=== PATIENT | female | born 1945 | race Caucasian/White ===

== ENCOUNTER → 2018-01-13 16:30 | Outpatient (CLI) | payer MEDICARE, SELFPAY ==
[2018-01-13 17:57] LABS: Prothrombin Time (Protime)PT. 13.6 SECONDS (11.7-14.9)
[2018-01-13 17:58] LABS: Partial Thromboplast Time 29.7 Seconds (24.1-36.2)
[2018-01-13 18:04] LABS: Hematocrit 44.7 % (37-47); Hemoglobin 14.8 g/dl (12.0-15.0); Mean Corp Hgb Conc 33.1 g/gl (32-36); Mean Corpuscular Hgb 30.6 pg (27.0-32.0); Mean Corpuscular Volume 92.4 fL (81-99); Mean Platelet Vol. 11.4 fl (6.2-12.0); Platelet Count 101 K/mm3 (150-450); RBC Distribution Width CV 12.8 % (11.6-14.6); RBC Distribution Width SD 42.9 fl (35.1-43.9); Red Blood Count 4.84 M/mm3 (4.2-5.4); White Blood Count 6.5 K/mm3 (4.4-11.0)
[2018-01-13 18:11] LABS: AST(SGOT) 95 U/L (15-37); Alanine Aminotransfer ALT/SGPT 121 U/L (13-56); Albumin, Serum 3.9 g/dL (3.2-5.0); Alkaline Phosphatase 114 U/L (45-117); Bilirubin, Direct 0.27 mg/dL (0.00-0.30); Globulin 3.5 g/dL (2.2-4.2); Protein, Total 7.4 g/dL (6.4-8.2); Scan Indicated on CBC? Y/N NO
[2018-01-15 15:38] LABS: AFP, Tumor Marker 12.2 ng/mL (0.0-8.3); HEPATITIS B SURFACE AG Negative (Negative)
== END ==
PROVIDERS: Family Provider Family Medicine; PCP Family Medicine; Referring Provider Internal Medicine Gastroenterology; Visit Provider Internal Medicine Gastroenterology
DX: B18.2 Chronic viral hepatitis C (principal)
CPT/HCPCS: 36415; 80076; 82105; 85027; 85610; 85730; 87340

== ENCOUNTER → 2018-08-12 12:08 | Outpatient (CLI) | payer MEDICARE, SELFPAY ==
[2018-08-14 03:06] LABS: HCV Quant. RNA PCR HCV Not Detected IU/mL (.)
== END ==
PROVIDERS: Family Provider Family Medicine; PCP Family Medicine; Referring Provider Internal Medicine Gastroenterology; Visit Provider Internal Medicine Gastroenterology
DX: B19.20 Unspecified viral hepatitis C without hepatic coma (principal)
CPT/HCPCS: 36415; 87522

== ENCOUNTER 2022-03-29 14:11 | Emergency (ER) | payer MEDICARE, SELFPAY ==
[2022-03-29 14:12] VITALS: BP 193/79; PULSE 88; RESP 16; TEMP 36.7; O2SAT 100; BMI 26.6
[2022-03-29 14:31] VITALS: BP 163/109
--- NOTE | 2022-03-29 14:50 | RAD_ITS ---
STUDY: X-RAY - LEFT WRIST REASON FOR EXAM: Female, 76 years old. pain for several days, unsure of injury TECHNIQUE: 3 view(s) of the wrist were obtained. COMPARISON: None. FINDINGS: Normal visualized distal radius and ulna. There is mild degenerative narrowing of the radiocarpal articulation with subchondral cystic changes in the midline of the radial metaphysis and proximal pole of the scaphoid. Small loose bodies are also seen on the dorsal and volar surface of the wrist. Normal distal radioulnar articulation. Normal carpal bones. Normal carpal articulations. Normal carpometacarpal articulation of the thumb. Normal second through fifth carpometacarpal articulations. Normal visualized metacarpal bones. The soft tissue structures are unremarkable. RAD/Wrist min 3 Views IMPRESSION: 1. Mild degenerative/arthritic changes of the wrist. Electronically Signed: Hollis Claire MD at 15:21 EST ,
--- NOTE | 2022-03-29 16:04 | EDS_ITS ---
HPI History of Present Illness Chief Complaint: Upper Extremity Injury Informant: patient Onset/Context/Timing Onset: Days (2) Context: Gradual Onset Timing: Continuous Quality of Pain: Aching Location: L wrist Current Severity: Moderate Maximum Severity: Moderate Worsened by: movement Relieved by: remaining still Associated Symptoms Associated Symptoms: Negative for Parasthesia, Weakness or Loss of Funtion Narrative Narrative: Patient started having pain in her left wrist several hours after she was doing lots of heavy carrying after bringing groceries into her house, including a 40 pound box of cat litter. The pain became worse, and now she is presenting for evaluation. She denies any systemic symptoms such as fevers. She got a scrape on her wrist a week or so ago that has been healing and it has not been bothering her very much, unrelated issue. [id number]. [facility] Medical History HTN (hypertension) Stroke Home Medications diazepam 5 mg tablet 5 mg PO Q8 PRN Muscle Spasm ##15 10/04/16 [Rx Last Taken Unknown] lisinopril 20 mg tablet 20 mg PO DAILY ##20 10/04/16 [Rx Last Taken Unknown] oxycodone-acetaminophen 5 mg-325 mg tablet 1 - 2 tab PO Q4H PRN PRN Pain ##20 10/04/16 [Rx Last Taken Unknown] Allergy/AdvReac Type Severity Reaction Status Date / Time No Known Allergies Allergy Verified 03/29/22 14:11 Social History Smoking Status: Never smoker ROS ROS ED Constitutional Constitutional ED: Denies chills or fever(s) Musculoskeletal Musculoskeletal: Reports extremity pain; Denies neck pain Integumentary Denies Abrasions, rash or wounds Neurologic Neurologic: Denies paresthesias or weakness EXAM Physical Exam Const Vital Signs: 03/29/22 14:12 03/29/22 14:31 Temperature 98.1 F Temperature Source Temporal Pulse Rate 88 Respiratory Rate 16 Blood Pressure 193/79 H 163/109 H Blood Pressure Mean 117 127 Pulse Ox 100 Oxygen Delivery Method Room Air Positive well nourished and well developed General Appearance ED: well developed and NAD Neck full ROM and supple Back/Spine normal ROM and normal to inspection Extremity Extremity Narrative: Patient is tender across the dorsum of the left wrist in addition to the snuffbox, and there is pain with axial loading of the thumb. Her Jolly test is negative. She has limited range of motion of the wrist but she has good short arc range of motion and is able to move it. I do not appreciate any significant swelling. There is a small scab on the dorsum of the left wrist, just distal to the ulnar tuberosity. There is mild tenderness here, but no signs of infection. No lymphangitis. Neuro oriented x3, no focal motor deficits and no sensory deficits noted Sensorium / Orientation: alert Psych mental status grossly normal and thought process normal Skin no wounds Skin Narrative: Blanching nontender hyperemia left wrist similar to right, does not involve the palm of the hand Rashes: no rashes MDM MDM MDM Narrative Medical decision making narrative: X-rays of the wrist 3 views of my interpretation negative for any acute. Radiology in agreement. I think she probably sprained her wrist especially given the gradual onset of symptoms just after all of the heavy lifting she was doing. Sounds like she really was carrying heavy things. I asked her about the slight hyperemia over this area, most of it is nontender superficially, and I think some of the area where she is tender is coincidental with regards to the color of the skin, she agrees it looks similar on the other side and she did not recognize any abnormal redness. We will place her in a splint give her a dose of meloxicam here today, and advised close outpatient follow-up if it is not improving she is comfortable with that plan. Radiography Diagnostic Testing: Clinical Impression(s) from Imaging Studies Wrist X-Ray 03/29/22 14:50 IMPRESSION: 1. Mild degenerative/arthritic changes of the wrist. Electronically Signed: Hollis Claire MD at 15:21 EST Reading Location ID and State: [facility] / [place] , Service support , Discharge Plan Triage Chief Complaint: Upper Extremity Injury ED Provider: Shahbaz Wyman Dx/Rx/DC Orders Clinical Impression: Left wrist sprain Instructions: ED Wrist Sprain Prescriptions: No Action oxycodone-acetaminophen 1 TABLET tablet 1 - 2 tab PO Q4H PRN PRN (Reason: Pain) Qty: 20 0RF diazepam 5 MG tablet 5 mg PO Q8 PRN (Reason: Muscle Spasm) Qty: 15 0RF lisinopril 20 MG tablet 20 mg PO DAILY Qty: 20 0RF Primary Care Provider: Sam Denise Referrals: Sam Denise MD [Primary Care Provider] - Lior Madrigal MD [Med Staff - Active Staff] - 1 Week if not improving Disposition Disposition: Home, Self Care
[2022-03-29] MEDS: Meloxicam 7.5 MG Tablet PO (16:19)
== END 2022-03-29 16:23 | disposition home or self-care (01) ==
PROVIDERS: Emergency Provider Emergency Medicine; PCP Family Medicine; Visit Provider Emergency Medicine
DX: S63.92XA Sprain of unspecified part of left wrist and hand, initial encounter (principal); X50.0XXA Overexertion from strenuous movement or load, initial encounter; I10 Essential (primary) hypertension; Z86.73 Personal history of transient ischemic attack (TIA), and cerebral infarction without residual deficits
CPT/HCPCS: 73110; 99282

== ENCOUNTER 2024-05-10 14:20 | Emergency (ER) | payer MEDICARE, SELFPAY ==
[2024-05-10 14:21] VITALS: BP 176/91; PULSE 79; RESP 16; TEMP 35.9; O2SAT 100
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
--- NOTE | 2024-05-10 16:00 | RAD_ITS ---
PROCEDURE: HAND MIN 3 VIEWS REASON FOR EXAM: Injury/pain. TECHNIQUE: AP, lateral, oblique view(s) of the right hand COMPARISON: None. FINDINGS: No visible fracture. No suspicious bone lesion. Normal alignment. Soft tissues are unremarkable. Joint space narrowing with osteophytosis is seen at the 2nd distal interphalangeal joint. There also degenerative changes in the proximal carpal row. 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 RAD/Hand Min 3 Views IMPRESSION: DEGENERATIVE CHANGES IN THE WRIST AND THE D IP JOINT OF THE 2ND DIGIT. NEGATIVE FOR ACUTE FRACTURE OR TRAUMATIC MALALIGNMENT. Reading Location: [id number]
--- NOTE | 2024-05-10 16:00 | RAD_ITS ---
PROCEDURE: FINGER(S) MIN 2 VIEWS REASON FOR EXAM: Injury/pain TECHNIQUE: 3 view(s) of the thumb COMPARISON: Left 1st finger FINDINGS: No visible fracture. Normal alignment. Soft tissues are unremarkable. RAD/Finger(s) Min 2 Views IMPRESSION: No acute osseous abnormality in the left 1st digit Reading Location: [facility]
[2024-05-10 17:39] VITALS: BMI 32.9
== END 2024-05-10 17:40 | disposition home or self-care (01) ==
PROVIDERS: Emergency Provider Emergency Medicine; PCP Family Medicine; Visit Provider Emergency Medicine
DX: S63.641A Sprain of metacarpophalangeal joint of right thumb, initial encounter (principal); S60.221A Contusion of right hand, initial encounter; V43.52XA Car driver injured in collision with other type car in traffic accident, initial encounter; I10 Essential (primary) hypertension; Z79.899 Other long term (current) drug therapy
CPT/HCPCS: 73130; 73140; 99284